=== PATIENT | female | born 1980 | race Caucasian/White ===

== ENCOUNTER → 2020-04-19 | Outpatient (CLI) | payer OTHER | LOC: OD 10:40 | PROVIDERS: ATTEND Otolaryngology | DX: R49.0 Dysphonia (principal) | CPT/HCPCS: 36415; 82785; 84439; 84443; 86003; 86376 ==

== ENCOUNTER → 2020-04-29 | Outpatient (CLI) | payer OTHER ==
--- NOTE | 2020-04-29 12:53 | WOMENS IMAGING REPORT ---
EXAM DESCRIPTION: U/S THYROID/ST TIS HEAD NECK IMAGES COMPLETED DATE/TIME: 04/29/2020 9:31 am REASON FOR STUDY: R22.1 R22.1 LOCALIZED SWELLING, MASS AND LUMP, NECK COMPARISON: None. TECHNIQUE: Dynamic and static moeller-scale images acquired of the thyroid gland. Selected additional c olor/power Doppler images recorded. All images stored to PACS. LIMITATIONS: None. FINDINGS: RIGHT LOBE: The right lobe of the thyroid gland measures 4.1 x 1.7 x 1.4 cm. The echotext ure of the lobe is heterogeneous. There is a calcified nodule in the superior pole of the lobe that measures 3 mm. In the inferior pole of the lobe that measures 13 mm in maximum diameter ; the node i s solid, isoechoic, as wide it is tall, has smooth margins and contains no echogenic foci (TR3). LEFT LOBE: The left lobe of the thyroid gland measures 3.1 x 1.1 x 1.2 cm. The echotexture of the lo be is homogeneous. There is no nodule. ISTHMUS: Homogeneous echotexture. OTHER: No other finding. IMPRESSION: 1. Calcified 3 mm nodule in the superior pole of the right lobe of the thyroid gland. 2. 13 mm TR3 nodule in lower pole of the right lobe of the thyroid gland. Based on TI-RADS criteria the nodule is considered mildly suspicious. Consider a follow-up ultrasound in 12 months. TECHNICAL DOCUMENTATION: JOB ID: [id number] 2010 [employer]- All Rights Reserved Reading location - IP/workstation name: [email or web address]
== END ==
LOC: WI 08:59
PROVIDERS: ATTEND Otolaryngology
DX: E04.1 Nontoxic single thyroid nodule (principal)
CPT/HCPCS: 76536